=== PATIENT | female | born 1985 | race Caucasian/White ===

== ENCOUNTER 2020-04-09 23:26 | Emergency (ER) | payer OTHER ==
[2020-04-09 23:43] VITALS: BP 106/65; PULSE 91
--- NOTE | 2020-04-10 00:15 | EDM.PDOC ---
ED HPI GENERAL MEDICAL PROBLEM - General Chief Complaint: Cardiovascular Problem Stated Complaint: HAD COVID 2 WKS AGO/SOB/HEART PALPITATIONS Time Seen by Provider: 04/09/20 23:59 Source of Information: Reports: Patient History Limitations: Reports: No Limitations - History of Present Illness INITIAL COMMENTS - FREE TEXT/NARRATIVE: Mrs. Gardner is a very pleasant 35-year-old woman who now presents to the ED with 2 days of dyspnea and painful inspiration. She states that she developed loss of taste and smell on 03/24/2020, then nasal congestion on 03/28/2020. She was tested for the SARS-CoV-2 virus on 03/31/2020, receiving a positive result on 04/03/2020. She states that her symptoms resolved after a few days, but then she developed dyspnea and pain with deep inspiration 2 days ago, 04/07/2020. Tonight, while trying to get to sleep, she developed rapid palpitations with the occasional skipped beat. The patient states that she has been taking Claritin for the past couple of weeks. Here in the ED, the patient is found to be hemodynamically stable, afebrile, saturating 99% on room air. The patient's PCP is CHRIS Wilson. Her Elevated Work Platform Operator is Dr. Aurea Hsieh. She received an influenza vaccine this season. - Related Data Allergies Allergy/AdvReac Type Severity Reaction Status Date / Time lidocaine Allergy Syncope Verified 04/09/20 23:42 Home Meds: Home Meds Loratadine [Claritin] 10 mg PO DAILY 04/09/20 [History] Past Medical History HEENT History: Reports: Allergic Rhinitis - Infectious Disease History Infectious Disease History: Reports: Novel Coronavirus (dx'd 03/31/2020) - Past Surgical History HEENT Surgical History: Reports: Adenoidectomy, Naso-Sinus Surgery (deviated septum), Oral Surgery (dental extractions), Tonsillectomy Social & Family History - Tobacco Use Tobacco Use Status *Q: Never Tobacco User Second Hand Smoke Exposure: No - Alcohol Use Alcohol Use History: Yes Alcohol Use Frequency: Rarely - Recreational Drug Use Recreational Drug Use: No - Living Situation & Occupation Living situation: Reports: , with Spouse, with Family (2 kids) 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 ED EXAM, GENERAL - Physical Exam Exam: See Below Exam Limited By: No Limitations General Appearance: Alert, WD/WN, No Apparent Distress Eye Exam: Bilateral Eye: EOMI, Normal Inspection Ears: Normal External Exam, Hearing Grossly Normal Nose: Normal Inspection Throat/Mouth: Normal Inspection, Normal Lips, Normal Voice, No Airway Compromise Head: Atraumatic, Normocephalic Neck: Normal Inspection, Full Range of Motion Respiratory/Chest: No Respiratory Distress, Lungs Clear, Normal Breath Sounds, No Accessory Muscle Use. No: Decreased Breath Sounds, Crackles, Rhonchi, Wheezing, Stridor, Prolonged Expiration Cardiovascular: Normal Peripheral Pulses, Regular Rate, Rhythm, No Edema, No Gallop, No JVD, No Murmur, No Rub Peripheral Pulses: 3+: Radial (L), Radial (R) GI/Abdominal: Normal Bowel Sounds, Soft, Non-Tender, No Organomegaly, No Distention, No Abnormal Bruit, No Mass Back Exam: Normal Inspection, Full Range of Motion, NT Extremities: Normal Inspection, Normal Range of Motion, No Pedal Edema, Normal Capillary Refill Neurological: Alert, Oriented, Normal Cognition, No Motor/Sensory Deficits Psychiatric: Normal Affect Skin Exam: Warm, Dry, Intact, Normal Color, No Rash #1 Interpretation EKG Date: 04/10/20 Time: 00:30 Rhythm: NSR (without ectopy) Rate (Beats/Min): 89 [place]: Normal P-Wave: Present QRS: Normal ST-T: Normal QT: Normal Comparison: NA - No Prior EKG Course - Vital Signs Last Recorded V/S: Last Vital Signs Temp 36.1 C 04/09/20 23:39 Pulse 91 04/09/20 23:39 Resp 16 04/09/20 23:39 BP 106/65 04/09/20 23:39 Pulse Ox 99 04/09/20 23:39 - Orders/Labs/Meds Orders: Active Orders 24 hr Category Date Time Status EKG Documentation Completion [RC] STAT Care 04/10/20 00:09 Active Chest 2V [CR] Stat Exams 04/10/20 00:00 Taken Labs: Laboratory Tests 04/10/20 04/10/20 04/10/20 Range/Units 00:26 00:26 00:26 WBC 8.41 (3.98-10.04) K/mm3 RBC 4.45 (3.98-5.22) M/mm3 Hgb 13.5 D (11.2-15.7) gm/dl Hct 40.4 (34.1-44.9) % MCV 90.8 D (79.4-94.8) fl MCH 30.3 (25.6-32.2) pg MCHC 33.4 (32.2-35.5) g/dl RDW Std Deviation 39.8 (36.4-46.3) fL Plt Count 236 (182-369) K/mm3 MPV 9.7 (9.4-12.3) fl Neutrophils % (Manual) 47 (40-60) % Band Neutrophils % 0 (0-10) % Lymphocytes % (Manual) 49 H (20-40) % Atypical Lymphs % 2 % Monocytes % (Manual) 2 (2-10) % Eosinophils % (Manual) 0 L (0.7-5.8) % Basophils % (Manual) 0 L (0.1-1.2) Platelet Estimate Adequate RBC Morph Comment Normal D-Dimer, Quantitative 0.25 (0.19-0.50) mg/L Sodium 139 (136-145) mEq/L Potassium 3.9 (3.5-5.1) mEq/L Chloride 105 (98-107) mEq/L Carbon Dioxide 28 (21-32) mEq/L Anion Gap 9.9 (5-15) BUN 10 (7-18) mg/dL Creatinine 0.8 (0.55-1.02) mg/dL Est Cr Clr Drug Dosing 86.37 mL/min Estimated GFR (MDRD) > 60 (>60) mL/min BUN/Creatinine Ratio 12.5 L (14-18) Glucose 108 H (74-106) mg/dL Calcium 9.0 (8.5-10.1) mg/dL Magnesium 1.9 (1.8-2.4) mg/dl Total Bilirubin 0.9 (0.2-1.0) mg/dL AST 20 (15-37) U/L ALT 45 (14-59) U/L Alkaline Phosphatase 44 L (46-116) U/L Troponin I < 0.017 (0.00-0.056) ng/mL Total Protein 7.2 (6.4-8.2) g/dl Albumin 3.8 (3.4-5.0) g/dl Globulin 3.4 gm/dL Albumin/Globulin Ratio 1.1 (1-2) TSH 3rd Generation 7.578 H (0.358-3.74) uIU/mL - Re-Assessments/Exams Free Text/Narrative Re-Assessment/Exam: 04/10/20 00:10 As above, the patient developed loss of taste and smell on 03/24/2020, then d eveloped nasal congestion 03/28/2020. She was tested for the SARS-CoV-2 virus on 03/31/2020, receiving a positive result on 04/03/2020. Her symptoms subsequently resolved, however, she developed dyspnea with painful inspiration 2 days ago, 04/07/2020, then experienced some rapid palpitations tonight while trying to get to sleep, with the sensation of occasional skipped beats. She is hemodynamically stable and afebrile, saturating 99% on room air. Her physical exam is completely benign. I have ordered a work-up that includes several blood tests, a chest x-ray, and an ECG. 04/10/20 00:55 Two-view chest radiograph appears to be grossly normal. The cardiac silhouette is within normal limits. No pulmonary vascular congestion. No pleural effusions. No focal infiltrate. No pneumothorax. Thoracic scoliosis is noted. Formal read per the Radiologist pending. 04/10/20 01:40 The patient's CMP is remarkable for mild hyperglycemia of 108. Her TSH is elevated at 7.578. Her CMP, magnesium level, troponin, and D-dimer are all unremarkable. 04/10/20 01:42 Test results discussed with the patient. As above, today's work-up, with the exception of her elevated TSH, is unremarkable. I explained that I cannot say that she did not have any extra beats while in bed at home, but we did not see any here. I do not see an indication for admitting her to the hospital. I will discharge her home with the recommendation that she follow-up with her PCP to get her TSH rechecked. Departure - Departure Time of Disposition: 01:43 Disposition: Home, Self-Care 01 Condition: Good Clinical Impression: Palpitations, Painful breathing - Discharge Information *PRESCRIPTION DRUG MONITORING PROGRAM REVIEWED*: Not Applicable *COPY OF PRESCRIPTION DRUG MONITORING REPORT IN PATIENT ZORAIDA: Not Applicable Referrals: Samia Peralta PA-C [Primary Care Provider] - Aurea Hsieh MD [Physician] - Forms: ED Department Discharge Additional Instructions: You were seen in the emergency room shortness of breath with pain when you take a deep breath, and rapid palpitations tonight. Work-up in the ER included several blood tests, a chest x-ray, and an ECG. Your TSH (thyroid-stimulating hormone) was found to be elevated, indicating that you might have hypothyroidism. The remainder of your work-up was unremarkable. We recommend that you take [id number] ibuprofen as needed for chest discomfort. We recommend that you follow-up with your PCP, PA. Steve For further evaluation of your thyroid. If any other problems, please do not hesitate to return to the ER. Sepsis Event Note (ED) - Evaluation Sepsis Screening Result: No Definite Risk - Focused Exam Vital Signs: Vital Signs Temp Pulse Resp BP Pulse Ox 04/09/20 23:39 36.1 C 91 16 106/65 99 - My Orders Last 24 Hours: My Active Orders 04/10/20 00:00 Chest 2V [CR] Stat 04/10/20 00:09 EKG Documentation Completion [RC] STAT - Assessment/Plan Last 24 Hours: My Active Orders 04/10/20 00:00 Chest 2V [CR] Stat 04/10/20 00:09 EKG Documentation Completion [RC] STAT
--- NOTE | 2020-04-10 14:50 | CR ---
Chest: 2 views of the chest were obtained. Comparison: No prior chest imaging. Findings: Heart and mediastinum: Heart size and mediastinum are within normal limits. Lungs: Lungs are clear with no acute parenchymal densities being seen. Osseous: Slight scoliosis is noted within the spine. No acute osseous findings are seen. Impression: 1. Nothing acute is appreciated. Diagnostic code #2 MTDD
== END 2020-04-10 01:56 | disposition home or self-care (01) ==
LOC: JD.ED 23:26
DX: R00.2 Palpitations (principal); R07.1 Chest pain on breathing; Z88.4 Allergy status to anesthetic agent
CPT/HCPCS: 36415; 71046; 71046-26; 80053; 83735; 84443; 84484; 85007; 85027; 85379; 93005; 93010; 99283; 99285-25

== ENCOUNTER 2021-02-28 07:24 | Inpatient (IN) | payer OTHER ==
--- NOTE | 2021-02-28 07:10 | PCM.LDHP ---
L&D History of Present Illness - General Date of Service: 02/28/21 Admit Problem/Dx: Patient Status Order with Admit Dx/Problem 02/28/21 07:06 Patient Status [ADT] Routine Admission Diagnosis/Problem Admission Diagnosis/Problem Normal in third trimester Source of Information: Patient History Limitations: Reports: No Limitations - History of Present Illness Introduction:: Patient is a 35 y/o at 40 0/7 wks who presents for elective IOL. Doing well. 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 Para: 2 LMP (Approximate): - Infectious Disease History Infectious Disease History: Reports: Novel Coronavirus (dx'd 03/31/2020) - Past Surgical History HEENT Surgical History: Reports: Adenoidectomy, Naso-Sinus Surgery (deviated septum), Oral Surgery (dental extractions), Tonsillectomy Social & Family History - Tobacco Use Tobacco Use Status *Q: Never Tobacco User - Alcohol Use Alcohol Use History: No - Recreational Drug Use Recreational Drug Use: No - Living Situation & Occupation Living situation: Reports: , with Spouse, with Family (2 kids) 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) H&P Review of Systems - Review of Systems: Review Of Systems: See Below General: Reports: No Symptoms Pulmonary: Reports: No Symptoms Cardiovascular: Reports: No Symptoms Gastrointestinal: Reports: No Symptoms Genitourinary: Reports: No Symptoms Musculoskeletal: Reports: No Symptoms Psychiatric: Reports: No Symptoms Neurological: Reports: No Symptoms L&D Exam - Exam Exam: See Below - OB Specific Contraction Intensity: Irritability Movement: Active Heart Tones: Present Heart Tones per Min: 140 Heart Rate (FHR) Variability: Moderate (6-25 bpm) Presentation: Vertex - Bolaños Score Bolaños Score Cervix Position: Midposition Bolaños Score Consistency: Soft Bolaños Score Effacement: 51-70% Bolaños Score Dilation: 3-4 cm Bolaños Score 's Station: -2 Bolaños Score Total: 8 - Exam General: Alert, Oriented, Cooperative Lungs: Clear to Auscultation, Normal Respiratory Effort Cardiovascular: Regular Rate, Regular Rhythm GI/Abdominal Exam: Soft, Non-Tender Genitourinary: Normal external exam Extremities: Normal Inspection - Patient Data Result Diagrams: 02/28/21 07:46 - Problem List (1) Thyroglobulin antibody positive SNOMED Code(s): 302905084 ICD Code: R76.8 - OTHER SPECIFIED ABNORMAL IMMUNOLOGICAL FINDINGS IN SERUM Status: Acute Current Visit: Yes (2) Rubella non-immune status, antepartum SNOMED Code(s): 273778733 ICD Code: O99.891 - OTH DISEASES AND CONDITIONS COMPLICATING ; Z28.3 - UNDERIMMUNIZATION STATUS Status: Acute Current Visit: Yes (3) 40 weeks gestation of SNOMED Code(s): 32131199 ICD Code: Z3A.40 - 40 WEEKS GESTATION OF Status: Acute Current Visit: Yes Problem List Initiated/Reviewed/Updated: Yes Orders Last 24hrs: Active Orders 24 hr Category Date Time Status Patient Status [ADT] Routine ADT 02/28/21 07:06 Ordered Communication Order [RC] ASDIRECTED Care 02/28/21 07:06 Ordered Communication Order [RC] ASDIRECTED Care 02/28/21 07:06 Ordered Communication Order [RC] ASDIRECTED Care 02/28/21 07:07 Ordered Heart Tones [RC] ASDIRECTED Care 02/28/21 07:07 Ordered Monitoring [RC] INTERMITTENT Care 02/28/21 07:06 Ordered Non Stress Test [RC] PER UNIT ROUTINE Care 02/28/21 07:06 Ordered Notify Provider [RC] ASDIRECTED Care 02/28/21 07:06 Ordered Notify Provider [RC] PRN Care 02/28/21 07:07 Ordered Peripheral IV Care [RC] . DIRECTED Care 02/28/21 07:07 Ordered Vaginal Exam [RC] ASDIRECTED Care 02/28/21 07:06 Ordered Vital Signs [RC] ASDIRECTED Care 02/28/21 07:06 Ordered Regular Diet [DIET] Diet 02/28/21 Breakfast Ordered CBC W/O DIFF,HEMOGRAM [HEME] Routine Lab 02/28/21 07:06 Ordered CORONAVIRUS COVID-19 DEEPA [MOLEC] Stat Lab 02/28/21 07:09 Ordered RAPID PLASMA REAGIN,RPR [CHEM] Routine Lab 02/28/21 07:07 Ordered TYPE AND SCREEN [BBK] Routine Lab 02/28/21 07:06 Ordered Lactated Ringers [Ringers, Lactated] 1,000 ml Med 02/28/21 07:15 Ordered IV ASDIRECTED Nalbuphine [Nubain] Med 02/28/21 07:06 Ordered 10 mg IVPUSH Q2H PRN Ondansetron [Zofran] Med 02/28/21 07:06 Ordered 4 mg IVPUSH Q4H PRN Oxytocin/Lactated Ringers [Pitocin in LR 10 Units/1,000 Med 02/28/21 07:15 O rdered ML] 10 unit in 1,000 ml IV .CONTINUOUS Oxytocin/Lactated Ringers [Pitocin in LR 10 Units/1,000 Med 02/28/21 07:15 Ordered ML] 10 unit in 1,000 ml IV TITRATE Sodium Chloride 0.9% [Saline Flush] Med 02/28/21 07:06 Ordered 10 ml FLUSH ASDIRECTED PRN Electronic Heart Tones Ext w TOCO [WOMSER] Oth 02/28/21 07:07 Ordered Routine Electronic Heart Tones Internal [WOMSER] Per Unit Oth 02/28/21 07:07 Ordered Routine Peripheral IV Insertion Adult [OM.PC] Routine Oth 02/28/21 07:06 Ordered Resuscitation Status Routine Resus Stat 02/28/21 07:06 Ordered Assessment/Plan Comment:: * Labs * GBS negative * Pitocin/AROM * Pain management per patient preference * Anticipate
[~2021-02-28 07:24] MED LIST: Nalbuphine 10 MG/1 ML Vial IVPUSH PRN; Ondansetron 4 MG/2 ML SDV IVPUSH PRN; Oxytocin/Lactated Ringers 10 UNIT/1,000 ML BAG IV SCH; Sodium Chloride 0.9% 10 ML Syringe FLUSH PRN
[2021-02-28] MEDS: Lactated Ringers 1,000 ML IV SCH ×2 (08:25→11:09)
--- NOTE | 2021-02-28 09:38 | PCM.PREANE ---
Preanesthetic Assessment - Procedure Proposed Procedure: Labor epidural - Anesthesia/Transfusion/Family Hx Anesthesia History: Prior Anesthesia Without Reaction Family History of Anesthesia Reaction: No Transfusion History: No Prior Transfusion(s) Intubation History: Unknown - Review of Systems General: No Symptoms Pulmonary: No Symptoms Cardiovascular: No Symptoms Gastrointestinal: Abdominal Pain (uterine contractions) Neurological: No Symptoms Other: Reports: Easy Bruising, Thyroid Problems (Was hyperthyroid following covid, following in clinic, has since been within normal limits for thyroid) - Physical Assessment NPO Status Date: 02/28/21 NPO Status Time: 07:00 Vital Signs: Last Vital Signs Temp 98.8 F 02/28/21 07:54 Pulse 95 02/28/21 07:54 Resp 16 02/28/21 07:54 BP 116/69 02/28/21 07:54 Pulse Ox 100 02/28/21 07:54 Height: 1.63 m Weight: 88.904 kg ASA Class: 2 Mental Status: Alert & Oriented x3 Airway Class: Mallampati = 2 Dentition: Reports: Normal Dentition, [place](s) Thyro-Mental Finger Breadths: 3 Mouth Opening Finger Breadths: 3 ROM/Head Extension: Full Lungs: Clear to Auscultation, Normal Respiratory Effort Cardiovascular: Regular Rate, Regular Rhythm, No Murmurs - Lab Values: Laboratory Last Values WBC 9.64 K/mm3 (3.98-10.04) 02/28/21 07:46 RBC 4.18 M/mm3 (3.98-5.22) 02/28/21 07:46 Hgb 13.5 gm/dl (11.2-15.7) 02/28/21 07:46 Hct 40.4 % (34.1-44.9) 02/28/21 07:46 MCV 96.7 fl (79.4-94.8) H D 02/28/21 07:46 MCH 32.3 pg (25.6-32.2) H 02/28/21 07:46 MCHC 33.4 g/dl (32.2-35.5) 02/28/21 07:46 RDW Std Deviation 47.2 fL (36.4-46.3) H 02/28/21 07:46 Plt Count 221 K/mm3 (182-369) 02/28/21 07:46 MPV 10.0 fl (9.4-12.3) 02/28/21 07:46 SARS-CoV-2 RNA (DEEPA) Negative (NEGATIVE) 02/28/21 07:48 Blood Type A POSITIVE 02/28/21 07:46 Gel Antibody Screen Negative 02/28/21 07:46 - Imaging/EKG Impressions: EKG 04/10/20 NSR HR 89 - Allergies Allergies/Adverse Reactions: Allergies Allergy/AdvReac Type Severity Reaction Status Date / Time lidocaine Allergy Syncope Verified 02/28/21 07:42 - Blood Blood Available: No Product(s) Available: None - Acknowledgements Anesthesia Type Planned: Epidural Pt an Appropriate Candidate for the Planned Anesthesia: Yes Alternatives and Risks of Anesthesia Discussed w Pt/Guardian: Yes Pt/Guardian Understands and Agrees with Anesthesia Plan: Yes Additional Comments: Patient has had two other epidurals without any reaction. Lidocaine is listed in the chart, patient stated she was in a procedure to get ear tubes placed and when they injected lidocaine patient stated that she "fainted". Patient denied a racing heart rate, SOB, wheezing, rash, or any other symptoms associated with this event. The way the patient describes the situation, it sounds like a vaso- vagal response. The procedure was aborted and the clinic where she had the procedure stated that her reaction "could have been from the lidocaine". 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: Musculoskeletal History: Reports: None Neurological History: Reports: None Psychiatric History: Reports: None Endocrine/Metabolic History: Reports: None Hematologic History: Reports: None Immunologic History: Reports: None Oncologic (Cancer) History: Reports: None Dermatologic History: Reports: None - Infectious Disease History Infectious Disease History: Reports: Novel Coronavirus (dx'd 03/31/2020) - Past Surgical History HEENT Surgical History: Reports: Adenoidectomy, Naso-Sinus Surgery (deviated septum), Oral Surgery (dental extractions), Tonsillectomy, Other (See Below) (Ear surgery to place ear tubes but aborted) - SUBSTANCE USE Tobacco Use Status *Q: Never Tobacco User Tobacco Use Within Last Twelve Months: No Second Hand Smoke Exposure: No Days Per Week of Alcohol Use: 0 Number of Drinks Per Day: 0 Total Drinks Per Week: 0 Recreational Drug Use History: No - HOME MEDS Home Medications: Home Meds Famotidine [Pepcid] 1 tab PO DAILY PRN 02/28/21 [History] Pnv No.95/Ferrous Fum/Folic AC [ Vitamin Tablet] 1 tab PO DAILY 02/28/21 [History] - CURRENT (IN HOUSE) MEDS Current Meds: Current Medications Oxytocin/Lactated Ringer's (Pitocin In Lr 10 Units/1,000 Ml) 10 unit in 1,000 mls @ 12 mls/hr IV TITRATE NANCI; Protocol Last Admin: 02/28/21 08:25 Dose: 2 munits/min, 12 mls/hr Documented by: Oxytocin/Lactated Ringer's (Pitocin In Lr 10 Units/1,000 Ml) 10 unit in 1,000 mls @ 500 mls/hr IV .CONTINUOUS NANCI Lactated Ringer's (Ringers, Lactated) 1,000 mls @ 40 mls/hr IV ASDIRECTED NANCI Last Admin: 02/28/21 08:25 Dose: 40 mls/hr Documented by: Nalbuphine HCl (Nalbuphine 10 Mg/1 Ml Vial) 10 mg IVPUSH Q2H PRN PRN Reason: Pain Ondansetron HCl (Ondansetron 4 Mg/2 Ml Sdv) 4 mg IVPUSH Q4H PRN PRN Reason: Nausea/Vomiting Sodium Chloride (Sodium Chloride 0.9% 10 Ml Syringe) 10 ml FLUSH ASDIRECTED PRN PRN Reason: Keep Vein Open
[2021-02-28] MEDS ORDERED: fentaNYL 100 MCG/2 ML SDV EPIDUR PRN (10:52)
[2021-02-28] MEDS ORDERED: diphenhydrAMINE 50 MG/ML SDV IVPUSH PRN (10:52)
[2021-02-28] MEDS ORDERED: Bupivacaine/fentaNYL/NS 100 ML Bag EPIDUR PRN (10:52)
[2021-02-28] MEDS ORDERED: ePHEDrine 50 MG/ML SDV IVPUSH PRN (10:52)
--- NOTE | 2021-02-28 11:03 | PCM.SN.2 ---
- Free Text/Narrative Note: Patient has received to prior epidurals without having any reactions (lidocaine listed as allergy with syncope as a reaction). Patient had her two epidurals prior to a reaction in the clinic. Patient described the event, patient was having an ear tube placed in the clinic, when the physician was injecting lidocaine, patient felt light headed and fainted. The procedure was aborted and the physician told the patient that her syncope "could have been caused by the lidocaine." Thus, a lidocaine allergy is listed on her chart. To ensure safety of the patient, an interdermal bleb of 0.2 ml of 1% lidocaine was injected under the patient's skin on the left forearm. Patient stated she felt the same as prior to the injection. No rash noted. No change in patient's breathing, no SOB, and no syncope noted. BP increased from 102/62 to 112/67. Then 10 mg IV 1% lidocaine given in IV to also assess for a reaction. No r eaction noted. Patient stated no change in situation or feeling. VS remained stable. Will plan to place epidural as "lidocaine allergy" appears to be a vaso-vagal reaction. Patient also stated when she gets blood drawn she tends to faint. Notified Dr. Hsieh and she stated she will remove the "lidocaine allergy" from her chart. Venus Brenner, DAMPER WORKER Time Documentation
--- NOTE | 2021-02-28 13:32 | PCM.PNPP ---
- General Info Date of Service: 02/28/21 - Patient Data Vital Signs - Most Recent: Last Vital Signs Temp 37.1 C 02/28/21 07:54 Pulse 95 02/28/21 07:54 Resp 16 02/28/21 07:54 BP 116/69 02/28/21 07:54 Pulse Ox 100 02/28/21 07:54 Weight - Most Recent: 88.904 kg Lab Results - Last 24 Hours: Laboratory Results - last 24 hr 02/28/21 02/28/21 02/28/21 Range/Units 07:46 07:46 07:48 WBC 9.64 (3.98-10.04) K/mm3 RBC 4.18 (3.98-5.22) M/mm3 Hgb 13.5 (11.2-15.7) gm/dl Hct 40.4 (34.1-44.9) % MCV 96.7 H D (79.4-94.8) fl MCH 32.3 H (25.6-32.2) pg MCHC 33.4 (32.2-35.5) g/dl RDW Std Deviation 47.2 H (36.4-46.3) fL Plt Count 221 (182-369) K/mm3 MPV 10.0 (9.4-12.3) fl SARS-CoV-2 RNA (DEEPA) Negative (NEGATIVE) Blood Type A POSITIVE Gel Antibody Screen Negative Med Orders - Current: Current Medications Diphenhydramine HCl (Diphenhydramine 50 Mg/Ml Sdv) 25 mg IVPUSH Q6H PRN PRN Reason: pruritis Ephedrine Sulfate (Ephedrine 50 Mg/Ml Sdv) 5 mg IVPUSH ASDIRECTED PRN PRN Reason: Hypotension Fentanyl (Fentanyl 100 Mcg/2 Ml Sdv) 100 mcg EPIDUR Q3H PRN PRN Reason: Pain Last Admin: 02/28/21 11:08 Dose: 100 mcg Documented by: Fentanyl/Bupivacaine HCl (Bupivacaine/Fentanyl/Ns 100 Ml Bag) 100 ml EPIDUR ASDIRECTED PRN PRN Reason: Pain Last Admin: 02/28/21 11:09 Dose: 100 ml Documented by: Oxytocin/Lactated Ringer's (Pitocin In Lr 10 Units/1,000 Ml) 10 unit in 1,000 mls @ 12 mls/hr IV TITRATE NANCI; Protocol Last Titration: 02/28/21 10:25 Dose: 8 munits/min, 48 mls/hr Documented by: Oxytocin/Lactated Ringer's (Pitocin In Lr 10 Units/1,000 Ml) 10 unit in 1,000 mls @ 500 mls/hr IV .CONTINUOUS NANCI Lactated Ringer's (Ringers, Lactated) 1,000 mls @ 40 mls/hr IV ASDIRECTED NANCI Last Admin: 02/28/21 11:09 Dose: 40 mls/hr Documented by: Nalbuphine HCl (Nalbuphine 10 Mg/1 Ml Vial) 10 mg IVPUSH Q2H PRN PRN Reason: Pain Ondansetron HCl (Ondansetron 4 Mg/2 Ml Sdv) 4 mg IVPUSH Q4H PRN PRN Reason: Nausea/Vomiting Sodium Chloride (Sodium Chloride 0.9% 10 Ml Syringe) 10 ml FLUSH ASDIRECTED PRN PRN Reason: Keep Vein Open Discontinued Medications Lidocaine HCl (Lidocaine 1% 5 Ml Sdv) Confirm Administered Dose 5 ml .ROUTE .[place] ONE Stop: 02/28/21 10:39 - Interaction Support Person: - My Orders Last 24 Hours: My Active Orders 02/28/21 Breakfast Regular Diet [DIET] 02/28/21 07:06 Patient Status [ADT] Routine Communication Order [RC] ASDIRECTED Communication Order [RC] ASDIRECTED Monitoring [RC] INTERMITTENT Non Stress Test [RC] PER UNIT ROUTINE Notify Provider [RC] ASDIRECTED Vaginal Exam [RC] ASDIRECTED Vital Signs [RC] 03,09,15,21 Nalbuphine [Nubain] 10 mg IVPUSH Q2H PRN Ondansetron [Zofran] 4 mg IVPUSH Q4H PRN Sodium Chloride 0.9% [Saline Flush] 10 ml FLUSH ASDIRECTED PRN Peripheral IV Insertion Adult [OM.PC] Routine Resuscitation Status Routine 02/28/21 07:07 Communication Order [RC] ASDIRECTED Heart Tones [RC] ASDIRECTED Notify Provider [RC] PRN Peripheral IV Care [RC] Q4HR Electronic Heart Tones Ext w TOCO [WOMSER] Routine Electronic Heart Tones Internal [WOMSER] Per Unit Routine 02/28/21 07:15 Lactated Ringers [Ringers, Lactated] 1,000 ml IV ASDIRECTED Oxytocin/Lactated Ringers [Pitocin in LR 10 Units/1,000 ML] 10 unit in 1,000 ml IV .CONTINUOUS Oxytocin/Lactated Ringers [Pitocin in LR 10 Units/1,000 ML] 10 unit in 1,000 ml IV TITRATE 02/28/21 07:46 RAPID PLASMA REAGIN,RPR [CHEM] Routine
[2021-02-28] MEDS ORDERED: Witch Hazel Medicated Pads 40/Jar TOP PRN (14:08)
[2021-02-28] MEDS ORDERED: Acetaminophen 325 MG Tab PO PRN (14:08)
[2021-02-28] MEDS ORDERED: Benzocaine/Menthol 20%-0.5% Spray 78 GM Cannister TOP PRN (14:08)
[2021-02-28] MEDS ORDERED: Docusate Sodium 100 MG Cap PO PRN (14:08)
[2021-02-28] MEDS ORDERED: ceFAZolin 1 GM Vial IM ONE (14:08)
[2021-02-28] MEDS: Ibuprofen 600 MG Tab PO PRN (14:34)
[2021-02-28] MEDS ORDERED: ceFAZolin/Dextrose,Iso-Osmotic 2 GM/50 ML Duplex Bag (Premix) IV ONE (14:45)
[2021-02-28] MEDS ORDERED: Bupivacaine 0.25% 10 ML SDV ONE (18:00)
--- NOTE | 2021-02-28 18:42 | PCM.DEL ---
L & D Note - General Info Date of Service: 02/28/21 - Delivery Note Labor: Induced by ARM, Induced by Oxytocin Cervical Ripening Method: Oxytocin Delivery Outcome: Livebirth Delivery Method: Spontaneous Vaginal Delivery-Single Infant Delivery Mode: Spontaneous Presentation: Right Occiput Anterior (MARIANN) Nuchal Cord: None Anesthesia Type: Epidural Amniotic Fluid Description: Clear Episiotomy Type: None Laceration: 1st Degree, Perineal Suture type: Vicryl Suture size: 2-0 Placenta: Intact, Spontaneous Cord: 3 Vessels Estimated Blood Loss: 200 Resuscitation Needed: Yes : Bulb Syringe, Stimulated, Warmed, [place] Used, Warmer Used Delivery Comments (Free Text/Narrative):: Patient found to be complete and began pushing. With maternal pushing effort head delivered from MARIANN presentation. No nuchal cord. With gentle downward traction shoulders and body delivered. placed on maternal abdomen. Cord clamped and cut. Cord blood obtained. Placenta allowed time to separate, but did not. Manual extraction done at about 25 minutes post delivery. Given 2 grams of ancef to cover for extraction . Placenta evaluated and appeared intact. Inspection of perineum showed 1st degree laceration repaired with a 2-0 Vicryl - General Info Date of Service: 02/28/21 - Patient Data Vitals - Most Recent: Last Vital Signs Temp 36.6 C 02/28/21 16:01 Pulse 58 L 02/28/21 16:01 Resp 14 02/28/21 16:01 BP 121/55 L 02/28/21 16:01 Pulse Ox 99 02/28/21 16:01 Weight - Most Recent: 88.904 kg I&O - Last 24 Hours: Intake & Output 02/28/21 02/28/21 02/28/21 06:59 14:59 22:59 Intake Total 2800 Output Total 197 Balance 2603 Lab Results Last 24 Hours: - Exam Urinary Catheter Total Time: 0Days 3Hours - Problem List & Annotations (1) Thyroglobulin antibody positive SNOMED Code(s): 385877407 Code(s): R76.8 - OTHER SPECIFIED ABNORMAL IMMUNOLOGICAL FINDINGS IN SERUM Status: Acute Current Visit: Yes (2) Rubella non-immune status, antepartum SNOMED Code(s): 141055580 Code(s): O99.891 - OTH DISEASES AND CONDITIONS COMPLICATING ; Z28.3 - UNDERIMMUNIZATION STATUS Status: Acute Current Visit: Yes (3) 40 weeks gestation of SNOMED Code(s): 67729879 Code(s): Z3A.40 - 40 WEEKS GESTATION OF Status: Acute Current Visit: Yes (4) Vaginal delivery SNOMED Code(s): 951452734 Code(s): O80 - ENCOUNTER FOR FULL-TERM UNCOMPLICATED DELIVERY Status: Acute Current Visit: No - Problem List Review Problem List Initiated/Reviewed/Updated: Yes - My Orders Last 24 Hours: My Active Orders 02/28/21 07:06 Resuscitation Status Routine 02/28/21 07:46 RAPID PLASMA REAGIN,RPR [CHEM] Routine 02/28/21 Lunch Regular Diet [DIET] 02/28/21 14:08 Acetaminophen [TylenoL] 650 mg PO Q4H PRN Benzocaine/Menthol [Dermoplast Pain Relief 20%-0.5% [place]] See Dose Instructions TOP ASDIRECTED PRN Docusate Sodium [Colace] 100 mg PO BID PRN Ibuprofen [Motrin] 600 mg PO Q6H PRN witch Denys [Tucks] 1 pad TOP ASDIRECTED PRN Heat Therapy [OM.PC] PRN 02/28/21 14:08 Activity as Tolerated [RC] PER UNIT ROUTINE Vital Signs [RC] 03,,15,21 Assess Lochia [WOMSER] Per Unit Routine Assess Uterine Involution [WOMSER] Per Unit Routine Breast Pump [WOMSER] Per Unit Routine Ice Therapy [OM.PC] Per Unit Routine Perineal Care [OM.PC] Per Unit Routine Peripheral IV Discontinue [OM.PC] Routine Sitz Bath [OM.PC] Per Unit Routine 03/01/21 14:08 Heat Therapy [OM.PC] PRN - Assessment Assessment:: PPD#0 - Plan Plan:: * Routine cares * Breast feeding * MMR prior to discharge * Discharge home in 1-2 days
[2021-03-01] MEDS: Ibuprofen 600 MG Tab PO PRN ×2 (01:00→08:00)
--- NOTE | 2021-03-01 06:39 | PCM.PNPP ---
- General Info Date of Service: 03/01/21 Functional Status: Reports: Pain Controlled, Tolerating Diet, Ambulating, Urinating - Review of Systems General: Reports: No Symptoms Pulmonary: Reports: No Symptoms Cardiovascular: Reports: No Symptoms Gastrointestinal: Reports: No Symptoms Genitourinary: Reports: No Symptoms Musculoskeletal: Reports: No Symptoms - General Info Date of Service: 03/01/21 - Patient Data Vital Signs - Most Recent: Last Vital Signs Temp 36.8 C 03/01/21 03:32 Pulse 73 03/01/21 03:32 Resp 14 03/01/21 03:32 BP 102/58 L 03/01/21 03:32 Pulse Ox 97 03/01/21 03:32 Weight - Most Recent: 88.904 kg I&O - Last 24 Hours: Intake & Output 02/28/21 02/28/21 03/01/21 14:59 22:59 06:59 Intake Total 2800 Output Total 547 Balance 2253 Lab Results - Last 24 Hours: Laboratory Results - last 24 hr 02/28/21 02/28/21 02/28/21 Range/Units 07:46 07:46 07:46 WBC 9.64 (3.98-10.04) K/mm3 RBC 4.18 (3.98-5.22) M/mm3 Hgb 13.5 (11.2-15.7) gm/dl Hct 40.4 (34.1-44.9) % MCV 96.7 H D (79.4-94.8) fl MCH 32.3 H (25.6-32.2) pg MCHC 33.4 (32.2-35.5) g/dl RDW Std Deviation 47.2 H (36.4-46.3) fL Plt Count 221 (182-369) K/mm3 MPV 10.0 (9.4-12.3) fl RPR Non-reactive (NONREACTIVE) SARS-CoV-2 RNA (DEEPA) (NEGATIVE) Blood Type A POSITIVE Gel Antibody Screen Negative 02/28/21 Range/Units 07:48 WBC (3.98-10.04) K/mm3 RBC (3.98-5.22) M/mm3 Hgb (11.2-15.7) gm/dl Hct (34.1-44.9) % MCV (79.4-94.8) fl MCH (25.6-32.2) pg MCHC (32.2-35.5) g/dl RDW Std Deviation (36.4-46.3) fL Plt Count (182-369) K/mm3 MPV (9.4-12.3) fl RPR (NONREACTIVE) SARS-CoV-2 RNA (DEEPA) Negative (NEGATIVE) Blood Type Gel Antibody Screen Med Orders - Current: Current Medications Acetaminophen (Acetaminophen 325 Mg Tab) 650 mg PO Q4H PRN PRN Reason: mild pain or fever Benzocaine/Menthol (Benzocaine/Menthol 20%-0.5% [place] 78 Gm Cannister) 0 gm TOP ASDIRECTED PRN PRN Reason: Perineal Comfort Measure Last Admin: 02/28/21 14:34 Dose: 1 can Documented by: Docusate Sodium (Docusate Sodium 100 Mg Cap) 100 mg PO BID PRN PRN Reason: Constipation Ibuprofen (Ibuprofen 600 Mg Tab) 600 mg PO Q6H PRN PRN Reason: Mild pain or fever Last Admin: 03/01/21 01:00 Dose: 600 mg Documented by: Measles/Mumps/Rubella Vaccine Live (Measles, Mumps & Rubella Vaccine 0.5 Ml Sdv) 0.5 ml SUBCUT .ONCE ONE Stop: 03/01/21 08:01 Witch Denys (Witch Denys Medicated Pads 40/Jar) 1 pad TOP ASDIRECTED PRN PRN Reason: Perineal Comfort Measure Last Admin: 02/28/21 14:33 Dose: 1 tub Documented by: Discontinued Medications Cefazolin Sodium (Cefazolin 1 Gm Vial) 2 gm IM ONETIME ONE Stop: 02/28/21 14:09 Last Admin: 02/28/21 14:58 Dose: Not Given Documented by: Cefazolin Sodium/Dextrose (Cefazolin/Dextrose,Iso-Osmotic 2 Gm/50 Ml Duplex Bag (Premix)) 2 gm IV ONETIME ONE Stop: 02/28/21 14:46 Last Admin: 02/28/21 14:58 Dose: 2 gm Documented by: Diphenhydramine HCl (Diphenhydramine 50 Mg/Ml Sdv) 25 mg IVPUSH Q6H PRN PRN Reason: pruritis Ephedrine Sulfate (Ephedrine 50 Mg/Ml Sdv) 5 mg IVPUSH ASDIRECTED PRN PRN Reason: Hypotension Fentanyl (Fentanyl 100 Mcg/2 Ml Sdv) 100 mcg EPIDUR Q3H PRN PRN Reason: Pain Last Admin: 02/28/21 11:08 Dose: 100 mcg Documented by: Fentanyl/Bupivacaine HCl (Bupivacaine/Fentanyl/Ns 100 Ml Bag) 100 ml EPIDUR ASDIRECTED PRN PRN Reason: Pain Last Admin: 02/28/21 11:09 Dose: 100 ml Documented by: Oxytocin/Lactated Ringer's (Pitocin In Lr 10 Units/1,000 Ml) 10 unit in 1,000 mls @ 12 mls/hr IV TITRATE NANCI; Protocol Last Titration: 02/28/21 10:25 Dose: 8 munits/min, 48 mls/hr Documented by: Oxytocin/Lactated Ringer's (Pitocin In Lr 10 Units/1,000 Ml) 10 unit in 1,000 mls @ 500 mls/hr IV .CONTINUOUS NANCI Lactated Ringer's (Ringers, Lactated) 1,000 mls @ 40 mls/hr IV ASDIRECTED NANCI Last Admin: 02/28/21 11:09 Dose: 40 mls/hr Documented by: Lidocaine HCl (Lidocaine 1% 5 Ml Sdv) Confirm Administered Dose 5 ml .ROUTE .[facility] ONE Stop: 02/28/21 10:39 Nalbuphine HCl (Nalbuphine 10 Mg/1 Ml Vial) 10 mg IVPUSH Q2H PRN PRN Reason: Pain Ondansetron HCl (Ondansetron 4 Mg/2 Ml Sdv) 4 mg IVPUSH Q4H PRN PRN Reason: Nausea/Vomiting Sodium Chloride (Sodium Chloride 0.9% 10 Ml Syringe) 10 ml FLUSH ASDIRECTED PRN PRN Reason: Keep Vein Open - Interaction Infant Disposition, : [place] in Room with Family Infant Interaction: Holding Infant Infant Feeding: Breastfed ; Nursed Well Support Person: - Recovery Exam Fundal Tone: Firm Fundal Level: 1 Fingerbreadths Below Umbilicus Fundal Placement: Midline Lochia Amount: Scant Lochia Color: Rubra/Red Perineum Description: Other (see below) Other Perinuem Description: 1st degree with repair Episiotomy/Laceration: Approximated Bladder Status: Voiding Urinary Elimination: Voided Other Urinary Elimination, : hasnt voided since delivery - Exam General: Alert, Oriented, Cooperative GI/Abdominal Exam: Soft, Non-Tender - Problem List & Annotations (1) Thyroglobulin antibody positive SNOMED Code(s): 706566731 Code(s): R76.8 - OTHER SPECIFIED ABNORMAL IMMUNOLOGICAL FINDINGS IN SERUM Status: Acute Current Visit: Yes (2) Rubella non-immune status, antepartum SNOMED Code(s): 039155804 Code(s): O99.891 - OTH DISEASES AND CONDITIONS COMPLICATING ; Z28.3 - UNDERIMMUNIZATION STATUS Status: Acute Current Visit: Yes (3) 40 weeks gestation of SNOMED Code(s): 60983653 Code(s): Z3A.40 - 40 WEEKS GESTATION OF Status: Acute Current Visit: Yes (4) Vaginal delivery SNOMED Code(s): 080596200 Code(s): O80 - ENCOUNTER FOR FULL-TERM UNCOMPLICATED DELIVERY Status: Acute Current Visit: No - Problem List Review Problem List Initiated/Reviewed/Updated: Yes - My Orders Last 24 Hours: My Active Orders 02/28/21 07:06 Resuscitation Status Routine 02/28/21 Lunch Regular Diet [DIET] 02/28/21 14:08 Acetaminophen [TylenoL] 650 mg PO Q4H PRN Benzocaine/Menthol [Dermoplast Pain Relief 20%-0.5% [place]] See Dose Instructions TOP ASDIRECTED PRN Docusate Sodium [Colace] 100 mg PO BID PRN Ibuprofen [Motrin] 600 mg PO Q6H PRN witch Denys [Tucks] 1 pad TOP ASDIRECTED PRN Heat Therapy [OM.PC] PRN 02/28/21 14:08 Activity as Tolerated [RC] PER UNIT ROUTINE Vital Signs [RC] 03,,,21 Assess Lochia [WOMSER] Per Unit Routine Assess Uterine Involution [WOMSER] Per Unit Routine Breast Pump [WOMSER] Per Unit Routine Ice Therapy [OM.PC] Per Unit Routine Perineal Care [OM.PC] Per Unit Routine Peripheral IV Discontinue [OM.PC] Routine Sitz Bath [OM.PC] Per Unit Routine 03/01/21 06:39 Ready for Discharge [RC] PER UNIT ROUTINE 03/01/21 08:00 Measles, Mumps & Rubella [M-M-R II Vaccine] 0.5 ml SUBCUT .ONCE ONE 03/01/21 14:08 Heat Therapy [OM.PC] PRN - Assessment Assessment:: PPD#1 - Plan Plan:: * Routine cares * Breast feeding * MMR prior to discharge * Discharge home today
--- NOTE | 2021-03-01 06:39 | PCM.DCSUM1 ---
Discharge Summary - Discharge Data Discharge Date: 03/01/21 Discharge Disposition: Home, Self-Care 01 Condition: Good - Referral to Home Health Primary Care Physician: Aurea Hsieh MD - Discharge Diagnosis/Problem(s) (1) Thyroglobulin antibody positive SNOMED Code(s): 102701733 ICD Code: R76.8 - OTHER SPECIFIED ABNORMAL IMMUNOLOGICAL FINDINGS IN SERUM Status: Acute Current Visit: Yes (2) Rubella non-immune status, antepartum SNOMED Code(s): 319251856 ICD Code: O99.891 - OTH DISEASES AND CONDITIONS COMPLICATING ; Z28.3 - UNDERIMMUNIZATION STATUS Status: Acute Current Visit: Yes (3) 40 weeks gestation of SNOMED Code(s): 54688946 ICD Code: Z3A.40 - 40 WEEKS GESTATION OF Status: Acute Current Visit: Yes (4) Vaginal delivery SNOMED Code(s): 126046298 ICD Code: O80 - ENCOUNTER FOR FULL-TERM UNCOMPLICATED DELIVERY Status: Acute Current Visit: No - Patient Summary/Data Complications: None Consults: None Recommended Follow-up Testing/Procedures: Follow up in 3 weeks for check Hospital Course: 35 y/o at 40 0/7 wks presented for IOL. Done with pitocin and AROM. Progressed well and underwent an uncomplicated . See delivery note . Postpa rtum did well and was discharged home on PPD#1 - Patient Instructions Diet: Regular Diet as Tolerated Activity: As Tolerated Activity, Other: Pelvic rest for 6 weeks Driving: May Drive Today Showering/Bathing: May Shower Showering/Bathing, Other: May Bathe Notify Provider of: Fever, Increased Pain, Swelling and Redness, Drainage, Nausea and/or Vomiting - Discharge Plan *PRESCRIPTION DRUG MONITORING PROGRAM REVIEWED*: No *COPY OF PRESCRIPTION DRUG MONITORING REPORT IN PATIENT ZORAIDA: No Home Medications: Home Meds Pnv No.95/Ferrous Fum/Folic AC [ Vitamin Tablet] 1 tab PO DAILY 02/28/21 [History] Acetaminophen [Tylenol] 650 mg PO Q4H PRN tablet 03/01/21 [Rx] Docusate Sodium [Colace] 100 mg PO BID PRN cap 03/01/21 [Rx] Ibuprofen [Motrin] 600 mg PO Q6H PRN tablet 03/01/21 [Rx] Patient Handouts: Care After Vaginal Delivery Referrals: Aurea Hsieh MD [Primary Care Provider] - (3 weeks for check ) - Discharge Summary/Plan Comment DC Time >30 min.: No Total # of Minutes for Discharge Time: 15 - Patient Data Vitals - Most Recent: Last Vital Signs Temp 36.8 C 03/01/21 03:32 Pulse 73 03/01/21 03:32 Resp 14 03/01/21 03:32 BP 102/58 L 03/01/21 03:32 Pulse Ox 97 03/01/21 03:32 Weight - Most Recent: 88.904 kg I&O - Last 24 hours: Intake & Output 02/28/21 02/28/21 03/01/21 14:59 22:59 06:59 Intake Total 2800 Output Total 547 Balance 2253 Lab Results - Last 24 hrs: Laboratory Results - last 24 hr 02/28/21 02/28/21 02/28/21 Range/Units 07:46 07:46 07:46 WBC 9.64 (3.98-10.04) K/mm3 RBC 4.18 (3.98-5.22) M/mm3 Hgb 13.5 (11.2-15.7) gm/dl Hct 40.4 (34.1-44.9) % MCV 96.7 H D (79.4-94.8) fl MCH 32.3 H (25.6-32.2) pg MCHC 33.4 (32.2-35.5) g/dl RDW Std Deviation 47.2 H (36.4-46.3) fL Plt Count 221 (182-369) K/mm3 MPV 10.0 (9.4-12.3) fl RPR Non-reactive (NONREACTIVE) SARS-CoV-2 RNA (DEEPA) (NEGATIVE) Blood Type A POSITIVE Gel Antibody Screen Negative 02/28/21 Range/Units 07:48 WBC (3.98-10.04) K/mm3 RBC (3.98-5.22) M/mm3 Hgb (11.2-15.7) gm/dl Hct (34.1-44.9) % MCV (79.4-94.8) fl MCH (25.6-32.2) pg MCHC (32.2-35.5) g/dl RDW Std Deviation (36.4-46.3) fL Plt Count (182-369) K/mm3 MPV (9.4-12.3) fl RPR (NONREACTIVE) SARS-CoV-2 RNA (DEEPA) Negative (NEGATIVE) Blood Type Gel Antibody Screen Med Orders - Current: Current Medications Acetaminophen (Acetaminophen 325 Mg Tab) 650 mg PO Q4H PRN PRN Reason: mild pain or fever Benzocaine/Menthol (Benzocaine/Menthol 20%-0.5% [place] 78 Gm Cannister) 0 gm TOP ASDIRECTED PRN PRN Reason: Perineal Comfort Measure Last Admin: 02/28/21 14:34 Dose: 1 can Documented by: Docusate Sodium (Docusate Sodium 100 Mg Cap) 100 mg PO BID PRN PRN Reason: Constipation Ibuprofen (Ibuprofen 600 Mg Tab) 600 mg PO Q6H PRN PRN Reason: Mild pain or fever Last Admin: 03/01/21 01:00 Dose: 600 mg Documented by: Measles/Mumps/Rubella Vaccine Live (Measles, Mumps & Rubella Vaccine 0.5 Ml Sdv) 0.5 ml SUBCUT .ONCE ONE Stop: 03/01/21 08:01 Witch Lindsay (Witch [place] Medicated Pads 40/Jar) 1 pad TOP ASDIRECTED PRN PRN Reason: Perineal Comfort Measure Last Admin: 02/28/21 14:33 Dose: 1 tub Documented by: Discontinued Medications Cefazolin Sodium (Cefazolin 1 Gm Vial) 2 gm IM ONETIME ONE Stop: 02/28/21 14:09 Last Admin: 02/28/21 14:58 Dose: Not Given Documented by: Cefazolin Sodium/Dextrose (Cefazolin/Dextrose,Iso-Osmotic 2 Gm/50 Ml Duplex Bag (Premix)) 2 gm IV ONETIME ONE Stop: 02/28/21 14:46 Last Admin: 02/28/21 14:58 Dose: 2 gm Documented by: Diphenhydramine HCl (Diphenhydramine 50 Mg/Ml Sdv) 25 mg IVPUSH Q6H PRN PRN Reason: pruritis Ephedrine Sulfate (Ephedrine 50 Mg/Ml Sdv) 5 mg IVPUSH ASDIRECTED PRN PRN Reason: Hypotension Fentanyl (Fentanyl 100 Mcg/2 Ml Sdv) 100 mcg EPIDUR Q3H PRN PRN Reason: Pain Last Admin: 02/28/21 11:08 Dose: 100 mcg Documented by: Fentanyl/Bupivacaine HCl (Bupivacaine/Fentanyl/Ns 100 Ml Bag) 100 ml EPIDUR ASDIRECTED PRN PRN Reason: Pain Last Admin: 02/28/21 11:09 Dose: 100 ml Documented by: Oxytocin/Lactated Ringer's (Pitocin In Lr 10 Units/1,000 Ml) 10 unit in 1,000 mls @ 12 mls/hr IV TITRATE NANCI; Protocol Last Titration: 02/28/21 10:25 Dose: 8 munits/min, 48 mls/hr Documented by: Oxytocin/Lactated Ringer's (Pitocin In Lr 10 Units/1,000 Ml) 10 unit in 1,000 mls @ 500 mls/hr IV .CONTINUOUS NANCI Lactated Ringer's (Ringers, Lactated) 1,000 mls @ 40 mls/hr IV ASDIRECTED NANCI Last Admin: 02/28/21 11:09 Dose: 40 mls/hr Documented by: Lidocaine HCl (Lidocaine 1% 5 Ml Sdv) Confirm Administered Dose 5 ml .ROUTE .[facility] ONE Stop: 02/28/21 10:39 Nalbuphine HCl (Nalbuphine 10 Mg/1 Ml Vial) 10 mg IVPUSH Q2H PRN PRN Reason: Pain Ondansetron HCl (Ondansetron 4 Mg/2 Ml Sdv) 4 mg IVPUSH Q4H PRN PRN Reason: Nausea/Vomiting Sodium Chloride (Sodium Chloride 0.9% 10 Ml Syringe) 10 ml FLUSH ASDIRECTED PRN PRN Reason: Keep Vein Open
--- NOTE | 2021-03-01 07:38 | PCM48HPAN ---
Post Anesthesia Note - EVALUATION WITHIN 48HRS OF ANESTHETIC Vital Signs in Normal Range: Yes Patient Participated in Evaluation: Yes Respiratory Function Stable: Yes Airway Patent: Yes Cardiovascular Function Stable: Yes Hydration Status Stable: Yes Pain Control Satisfactory: Yes Nausea and Vomiting Control Satisfactory: Yes Mental Status Recovered: Yes Vital Signs: Last Vital Signs Temp 36.8 C 03/01/21 03:32 Pulse 73 03/01/21 03:32 Resp 14 03/01/21 03:32 BP 102/58 L 03/01/21 03:32 Pulse Ox 97 03/01/21 03:32 - COMMENTS/OBSERVATIONS Free Text/Narrative:: no anesthesia complications noted
[2021-03-01] MEDS ORDERED: Measles, Mumps & Rubella Vaccine 0.5 ML SDV SUBCUT ONE (08:00)
[2021-03-01 08:35] VITALS: BP 109/54; PULSE 68
== END 2021-03-01 13:52 | disposition home or self-care (01) | DRG 807 ==
LOC: JD.OBCHECK 07:24 → JD.OB 07:26 → OBSVTOIN 13:01 → JD.OB 13:02
PROVIDERS: ADMIT Obstetrics & Gynecology; ATTEND Obstetrics & Gynecology
PROC: 10E0XZZ Delivery of Products of Conception, External Approach (ICD-10-PCS; principal; 2021-02-28)
PROC: 10907ZC Drainage of Amniotic Fluid, Therapeutic from Products of Conception, Via Natural or Artificial Opening (ICD-10-PCS; 2021-02-28)
PROC: 3E033VJ Introduction of Other Hormone into Peripheral Vein, Percutaneous Approach (ICD-10-PCS; 2021-02-28)
PROC: 0HQ9XZZ Repair Perineum Skin, External Approach (ICD-10-PCS; 2021-02-28)
PROC: 3E0R3BZ Introduction of Anesthetic Agent into Spinal Canal, Percutaneous Approach (ICD-10-PCS; 2021-02-28)
PROC: 00HU33Z Insertion of Infusion Device into Spinal Canal, Percutaneous Approach (ICD-10-PCS; 2021-02-28)
DX: O48.0 Post-term pregnancy (principal); Z37.0 Single live birth; Z3A.40 40 weeks gestation of pregnancy; Z88.8 Allergy status to other drugs, medicaments and biological substances; Z79.899 Other long term (current) drug therapy; J30.9 Allergic rhinitis, unspecified; Z90.89 Acquired absence of other organs; Z98.890 Other specified postprocedural states; R76.8 Other specified abnormal immunological findings in serum; Z20.822 Contact with and (suspected) exposure to COVID-19
CPT/HCPCS: 36415; 51701; 59025; 59409; 85027; 86592; 86850; 86900; 86901; 90707; A9270-GY; J0690; J2590; J3010; J3490; J7120; U0002